=== PATIENT | female | born 1990 | race African-American/Black ===

== ENCOUNTER → 2021-04-10 11:16 | Outpatient (CLI) | payer OTHER, SELFPAY ==
--- NOTE | ~2021-04-10 | XR_ITS ---
XR chest 2V DATE: 04/10/2021 11:57 INDICATION: Preoperative clearance TECHNIQUE: 2 views COMPARISON: None FINDINGS: Normal heart size. No hilar or mediastinal enlargement. No pulmonary infiltrate or consolid ation, pleural effusion or pulmonary vascular congestion or pneumothorax. There is levoscoliosis of the upper thoracic spine and mild dextro scoliosis of the lower thoracic an d lumbar spine. IMPRESSION: No active cardiac pulmonary disease Thoracic and lumbar scoliosis Reviewed, dictated and finalized at location A.
== END ==
PROVIDERS: PCP Internal Medicine; Visit Provider Internal Medicine
DX: Z01.818 Encounter for other preprocedural examination (principal); M41.86 Other forms of scoliosis, lumbar region
CPT/HCPCS: 71046